=== PATIENT | female | born 1960 | race Caucasian/White ===

== ENCOUNTER 2024-06-23 01:25 | Inpatient (IN) | payer OTHER, SELFPAY ==
[2024-06-22 21:18] VITALS: BP 147/64
[2024-06-22 21:19] VITALS: BMI 35.6
[2024-06-22 21:20] VITALS: BP 147/64
--- NOTE | 2024-06-22 21:33 | ED.GENMED ---
History of Present Illness
General
Chief Complaint: Abdominal Symptoms
Source: patient
Exam Limitations: none
Time Seen by Provider: 06/22/24 21:21
Nursing documentation reviewed up to this point in time: agreed with
History of Present Illness
History of Present Illness:
Patient presents to ED secondary to intermittent episodes of 'shaking chills' since last night. When she went to sleep at 2 AM yesterday, patient did not have any complaints. However, she woke up shortly afterwards with aforementioned sensation.
During the course the day today, patient states that her symptoms had resolved until this evening, when her symptoms returned with 1 vomiting episode. Denies recent illness. Denies fever. Denies coughing. Denies rash. Denies headache. Denies
recent travel. Denies sick contact. Denies recent change in medications or diet.
Review of Systems
Review of Systems
Allergies reviewed?: Yes
All Other Systems: ROS reviewed and negative except as documented in HPI and ROS
Constitutional: Reports chills
Respiratory: Reports no symptoms; Denies trouble breathing
Cardiac: Reports no symptoms; Denies chest pain
ABD/GI: Reports nausea and vomiting; Denies abdominal pain
: Denies no symptoms
Musculoskeletal: Reports no symptoms
Skin: Reports no symptoms
Neurological: Reports no symptoms
Phy Exam
Physical Exam
Physical Exam:
Physical Exam
General: mild distress, not acutely ill. afebrile.
Head: nc/at. eomi
Neck: supple. no meningeal signs.
Heart: s1/s2 regular rate and rhythm, no murmur. equal radial pulses.
Lungs: no acute respiratory distress. clear bilaterally
Abdomen: normal bowel sounds. not tender.
Neuro: alert and oriented. no focal neurological deficits
Skin: no rash
Psychiatric: well kept. interactive and cooperative
Extremities: no edema. no calf tenderness.
Course
Orders/Labs/Results
Orders:
Orders
06/22/24 21:31
Rectal Temp- Treatment ONCE
06/22/24 21:32
0.9% Sodium Chloride 500 ml [Nss] 500 ml IV BOLUS
Ondansetron Injectable [Zofran] 4 mg IV NOW STA
06/22/24 21:33
Electrocardiogram (*1) Urgent
Reason for Study: Bradycardia / Tachycardia
EKG- Treatment ONCE
06/22/24 21:35
COVID-19 Antigen Urgent
Source: Nasal Swab
Complete Blood Count/With Diff Urgent
Comprehensive Metabolic Panel Urgent
Lipase Urgent
Comment: ADD ON
Magnesium Urgent
Troponin I Urgent
06/22/24 21:43
Acetaminophen [Tylenol] 1,000 mg PO NOW STA
06/22/24 22:13
Urinalysis Reflex To Culture Urgent
Date Specimen was Collected: 06/22/24
Time Specimen was Collected: 22:12
Urine Microscopic Reflex Cult Urgent
06/22/24 22:24
US Abdomen Complete/Upper Urgent
Comment:
Reason For Exam: abnormal LFTs w fever
06/22/24 22:25
Add On- LAB Urgent
Tests Added?: lipase
06/22/24 23:30
Piperacillin/Tazo 3.375 Gram [Zosyn] 3.375 gram in 50 ml IV NOW
06/22/24 23:42
Lactic Acid Q4H
Comment: CANCEL 2nd LACTIC ACID IF 1st LACTIC ACID IS LESS THAN 2
Blood Culture Urgent
LUKE Source: Blood/Venous
Specimen Description:
06/23/24 01:08
Admit/Transfer Patient As Directed
Co-Sign Provider:
Level of Care: Inpatient admission
Assign to:: Medical/Surgical
Physician / Group: Kyle
Diagnosis: Hepatitis / Cholangitis
Reason for Hospitalization: Hepatitis / Cholangitis
Expected length of stay greater than two midnights?: Yes
ELOS- Estimated Length of Stay in days: 3
I certify the patient meets the requirements for IP care: Yes
PRN Pain Medication Management As Directed
May give lesser potent ordered pain med per pt: Yes
preference::
Protocol:: Medication orders for pain may be administered in a
manner that supports deferring to patient preference
when the pt is:
- Requesting an ordered lesser potent pain medication.
Least to most potent pain medications are defined
as: acetaminophen < NSAID < tramadol < opioids
(morphine, oxycodone, hydromorphone).
- Requesting a lesser dose of the same medication IF
ORDERED.
- Requesting a less intrusive route of administration
if both routes are prescribed by the provider (PO <
IV).
06/23/24 01:09
Code Status As Directed
Resuscitation Status: Full Code
06/23/24 02:16
Acetaminophen [Tylenol] 650 mg PO Q4HPRN PRN
Lactated Ringers [Lr] 1,000 ml IV 100 mls/hr
Piperacillin/Tazo 3.375 Gram [Zosyn] 3.375 gram in 50 ml IV Q6H
06/23/24 02:16
Consult Notification Routine
Specialty to Notify: Gastroenterology
Date consulting provider notified: 06/23/24
Time consulting provider notified: 07:47
Notified:: Provider
GASTROINTESTINAL CONSULT Routine
Consulting Provider: Kenyatta Obando
Was physician already notified: No
Reason for consult: Hepatitis / Cholangitis
Activity As Directed
Activity Level: Ambulate
I/O [Intake/ Output] As Directed
Frequency: Per unit guidelines
Vital Signs As Directed
Frequency: Per unit guidelines
Oxygen Therapy [O2 Therapy] [RESP] Routine
Titrate/Wean O2 to maintain O2 sat greater than (%): 94
DX Deep Vein Thrombosis Video Routine
06/23/24 Breakfast
Clear Liquid
At Your Request: Full Participation
06/23/24 06:08
Complete Blood Count/No Diff IN AM
Hepatitis A IgM Antibody Urgent
Hepatitis B Core Ab, IgM Urgent
Hepatitis B Surface Antibody Urgent
Hepatitis B Surface Antigen Urgent
Hepatitis C Antibody Urgent
Lactic Acid Q4H
Comment: CANCEL 2nd LACTIC ACID IF 1st LACTIC ACID IS LESS THAN 2
06/23/24 18:00
Enoxaparin Sodium [Lovenox] 40 mg SC QPM
Abnormal Lab Results
06/22/24 06/22/24 06/22/24
21:35 22:13 23:42
WBC 4.6 L 10^3/uL
(4.8-10.8)
MCV 80.3 L fL
(81.0-99.0)
MCH 26.8 L pg
(27.0-31.0)
RDW 14.6 H %
(11.5-14.5)
MPV 11.2 H fL
(7.4-10.4)
Absolute Lymphs (auto) 0.4 L 10^3/uL
(1.2-3.4)
Absolute Monos (auto) 0.0 L 10^3/uL
(0.1-0.6)
Neutrophils % 88.9 H %
(42.2-75.2)
Lymphocytes % 9.3 L %
(20.5-51.1)
Monocytes % 0.4 L %
(1.7-9.3)
Glucose 111 H mg/dl
(70-99)
Lactic Acid 2.5 H mmol/L
(0.7-2.0)
Total Bilirubin 4.4 H mg/dl
(0.2-1.3)
AST 1982 H* U/L
(14-36)
ALT 2577 H* U/L
(0-35)
Alkaline Phosphatase 406 H U/L
(38-126)
Ur Occult Blood Reflex 2+ A
(Negative)
Urine Bilirubin 2+ A
(Negative)
Urine Urobilinogen 2+ A
(Neg - 1+)
Leukocyte Esterase Rfl Trace A
(Negative)
06/22/24 21:35
06/22/24 21:35
Vital Signs
Initial and Last Documented VS:
Initial Vital Signs
BP
147/64
06/22/24 21:18
Last Documented Vital Signs
Temp Pulse Resp BP Pulse Ox
98.1 F 81 16 109/63 97
06/23/24 07:49 06/23/24 07:49 06/23/24 07:49 06/23/24 07:49 06/23/24 07:49
MDM/Problems Addressed
MDM/Problems Addressed:
Patient presents to ED with fever with abnormal LFTs. Abdominal ultrasound report reviewed - no acute findings noted. In light of patient's presenting symptoms, difficult to exclude potential cholangitis. As such, patient will be given empiric
antibiotic coverage with Zosyn and will be admitted for further evaluation and treatment.
*Critical Care Note
Total Time (30-74mins, 75-104mins- exclusive of procedures): Not Applicable
ED Attending Note
-
Portions of this chart may have been created with voice recognition software.� Occasional wrong word or��sound alike� substitutions may have occurred due to the inherent limitations of voice recognition software.
Discharge Plan
Departure
Patient Disposition: Admit
Date of Disposition: 06/22/24
Time of Disposition: 23:30
Admit to: Telemetry
Presentation/result/management discussed w/ accepting MD/DO: Hospitalist
Discharge Problem:
Fever, Abnormal LFTs
Interventions
Interventions:
*Risk Screen - Suicide Last Done: 06/22/24 21:26
*General Assessment Last Done: 06/22/24 21:26
*Neglect/Abuse Screening Last Done: 06/22/24 21:26
ED- Fall Risk Assessment Last Done: 06/22/24 21:28
*ED COVID-19 Vaccine History Last Done: 06/22/24 21:26
*Nursing Disposition Last Done: 06/23/24 02:09
UD-Wnhscl-Plrafovzyy Assessment Last Done: 06/22/24 23:20
Discharge Date and Time
Discharge Date/Time: 06/23/24 02:10
[2024-06-22 21:40] LABS: % Basophils 0.4 % (0-2); % Eosinophils 0.6 % (0-6); % Immature Granulocytes 0.4 % (0-0.5); % Lymphocytes 9.3 % (20.5-51.1); % Monocytes 0.4 % (1.7-9.3); % Neutrophils 88.9 % (42.2-75.2); Absolute Lymphocytes 0.4 10^3/uL (1.2-3.4); Absolute Neutrophils 4.1 10^3/uL (1.4-6.5); Hematocrit 39.2 % (37.0-47.0); Hemoglobin 13.1 g/dL (12.0-16.0); Mean Corp Hgb Conc. 33.4 g/dL (33.0-37.0); Mean Corpuscular Hgb 26.8 pg (27.0-31.0); Mean Corpuscular Volume 80.3 fL (81.0-99.0); Mean Platelet Volume 11.2 fL (7.4-10.4); Nucleated Red Blood Cells % 0 %; Platelet Count 214 10^3/uL (130-400); Red Blood Cell Count 4.88 10^6/uL (4.20-5.40); Red Cell Dist. Width 14.6 % (11.5-14.5); White Blood Cell Count 4.6 10^3/uL (4.8-10.8)
[2024-06-22] MEDS: NSS 500 IV (21:40)
[2024-06-22] MEDS: ZOFRAN 4 MG IV (21:40)
[2024-06-22 21:57] LABS: Albumin 4.3 g/dl (3.5-5.0); Alkaline Phosphatase 406 U/L (38-126); Blood Urea Nitrogen 11 mg/dl (7-17); Calcium 9.2 mg/dl (8.4-10.2); Carbon Dioxide 24 mmol/L (22-30); Chloride 104 mmol/L (98-107); Estimated Creatinine Clearance 94 ml/min; Glucose 111 mg/dl (70-99); Magnesium 1.8 mg/dl (1.6-2.3); Potassium 3.9 mmol/L (3.5-5.1); Sodium 137 mmol/L (135-145); Total Bilirubin 4.4 mg/dl (0.2-1.3); Total Protein 6.9 g/dl (6.3-8.2); eGFR > 60.00
[2024-06-22 22:00] VITALS: BP 156/65
[2024-06-22 22:08] LABS: COVID-19 Antigen Negative (Negative)
[2024-06-22] MEDS: TYLENOL 1000 MG PO (22:10)
[2024-06-22 22:11] LABS: Troponin I < 0.012 ng/ml
[2024-06-22 22:24] LABS: Urine Albumin Negative (Neg - Trace); Urine Bilirubin 2+ (Negative); Urine Character Clear (Clear); Urine Color Yellow; Urine Glucose Negative (Negative); Urine Ketone Negative (Negative); Urine Leukocyte Trace (Negative); Urine Nitrite Negative (Negative); Urine Occult Blood 2+ (Negative); Urine Specific Gravity 1.015 (<1.030); Urine Urobilinogen 2+ (Neg - 1+)
[2024-06-22 22:28] LABS: ALT (SGPT) 2577 U/L (0-35); AST (SGOT) 1982 U/L (14-36)
[2024-06-22 22:41] LABS: Lipase 112 U/L (23-300)
[2024-06-22 22:52] LABS: Urine Red Blood Cell 0-2 /HPF (0-2)
[2024-06-22 23:10] VITALS: BP 121/109
[2024-06-22 23:22] VITALS: BP 122/64
[2024-06-22] MEDS: ZOSYN 50 IV (23:49)
[2024-06-23] VITALS: BP 121/60
[2024-06-23 00:10] LABS: Lactic Acid 2.5 mmol/L (0.7-2.0)
[2024-06-23 01:00] VITALS: BP 123/60
--- NOTE | 2024-06-23 01:12 | HPS.HSE ---
Family Physician
-
Family Physician: Wilder Farfan
Chief Complaint
-
Abd Pain, Chills
History of Present Illness
Patient is a 64y F with PMH significant for dyslipidemia and obesity who presents to ED complaining of abdominal pain, N/V and chills. Patient states that she woke this AM with some abdominal discomfort across her lower abdomen. This seemed to
improve throughout the day. Last in the evening, she began to feel nauseated. She then developed shaking chills, sweats and aching pain all over. Patient had N/V x 1 at home and a second episode here in the ED. She denies any diarrhea. She
denies any urinary complaints.
Patient denies any prior history of similar symptoms.
She denies any recent new / unusual food exposures. She does eat deli meats - but is not sure which type / brand.
Patient traveled to [place] in May where she was swimming in fresh water lakes. No other recent travel.
No known sick contacts.
Patient is s/p prior cholecystectomy.
She had labs done for routine physical in March and these were unremarkable including completely normal LFTs at that time.
Medical History
Past Medical History
Past Medical History: Reports Other
Additional Past Medical History:
Dyslipidemia
Breast Cancer s/p Lumpectomy and XRT
Obesity
Vitamin D Deficiency
Past Surgical History: Reports Other
Additional Past Surgical History:
Cholecystectomy
Left Lumpectomy
Social History
Tobacco: Non-smoker
Alcohol: None
Drug: None
Family History
Family History: Other (Mother: Premature CAD MGM: Breast Cancer)
Allergies / Home Medications
Allergies reflects when Allergies were last updated in [facility].
Home Medications with original date entered in [facility]
Allergy/Medication List:
Allergies
Allergy/AdvReac Type Severity Reaction Status Date / Time
No Known Allergies Allergy Unverified 06/22/24 21:21
Home Medications
atorvastatin 10 mg tablet 10 mg PO DAILY 06/22/24
ergocalciferol (vitamin D2) 1,250 mcg (50,000 unit) capsule 1,250 mcg PO QWEEK 06/22/24
Review of Systems
-
History Source: Patient
A 12 point ROS was completed and negative except as noted: Yes
Constitutional: Reports Fever, Fatigue and Chills
EENT: Denies Sore Throat
Respiratory: Denies Cough or Trouble Breathing
Cardiac: Denies Chest Pain or Palpitations
Abdomen/GI: Reports Abdominal Pain, Nausea and Vomiting; Denies Diarrhea, Constipated, Bloody Stools, Black Stools or Anorexia
: Denies Dysuria, Frequency or Flank Pain
Musculoskeletal: Denies Joint Pain or Edema
Neurological: Denies Dizzy or Headache
Psych: Denies Depression or Anxiety
Physical Exam
Vital Signs
Vital Signs
Temp Pulse Resp BP Pulse Ox
101.0 F H 97 17 123/60 95
06/22/24 23:30 06/23/24 01:00 06/23/24 01:00 06/23/24 01:00 06/23/24 01:00
Physical Exam
General: Other (64y F in no acute distress.)
HEENT: Moist mucous membranes, PERRLA and Other (Thick neck.)
Respiratory: Clear; No Wheezes, Rales or Rhonchi
Cardiac: S1/S2 and Regular Rhythm; No Murmur
GI: Soft, Non Tender, Non Distended, Normal Bowel Sounds and Other (Obese. )
Musculoskeletal: No Clubbing, No Cyanosis and No Edema
Neuro: AO x 3
Laboratory Results
-
06/22/24 21:35
06/22/24 21:35
Laboratory Results
Lactic Acid 2.5 mmol/L (0.7-2.0) H 06/22/24 23:42
Total Bilirubin 4.4 mg/dl (0.2-1.3) H 06/22/24 21:35
AST 1982 U/L (14-36) H* 06/22/24 21:35
ALT 2577 U/L (0-35) H* 06/22/24 21:35
Alkaline Phosphatase 406 U/L (38-126) H 06/22/24 21:35
Troponin I < 0.012 ng/ml 06/22/24 21:35
Lipase 112 U/L (23-300) 06/22/24 21:35
Impression/Plan
-
A/P: Patient is a 64y F with PMH significant for obesity and dyslipidemia who presents to ED complaining of abd pain, N/V and chills.
Acute Hepatitis v Cholangitis
Sepsis secondary to the above
- Admit for further evaluation and treatment.
- Patient presents with fever and tachycardia and abnormal LFTs c/w hepatitis or cholangitis.
- Some abdominal pain but no tenderness on exam.
- US essentially unremarkable post-cholecystectomy exam.
- Continue IV Zosyn for now.
- Check hepatitis panel.
- GI evaluation for additional recommendations.
- Supportive care including IVFs, antiemetics, etc.
- Hold statin for now - though doubt this is related.
Dyslipidemia
Obesity due to excess calories
- Affects all aspects of care.
- Encourage healthy diet and increased exercise with goal of weight loss.
DVT Prophylaxis: Lovenox
Code Status: Full
[2024-06-23 02:15] VITALS: BP 103/63; BMI 35.2
[2024-06-23] MEDS: ZOFRAN 4 MG IV (03:13)
[2024-06-23] MEDS: LR 1000 IV ×2 (03:14→18:33)
[2024-06-23] MEDS: ZOSYN 50 IV ×4 (03:14→20:30)
[2024-06-23 06:00] VITALS: BMI 35.2
[2024-06-23 06:39] LABS: Hematocrit 35.4 % (37.0-47.0); Mean Corp Hgb Conc. 33.9 g/dL (33.0-37.0); Mean Corpuscular Hgb 27.6 pg (27.0-31.0); Mean Corpuscular Volume 81.6 fL (81.0-99.0); Platelet Count 155 10^3/uL (130-400); Red Blood Cell Count 4.34 10^6/uL (4.20-5.40); Red Cell Dist. Width 14.6 % (11.5-14.5)
[2024-06-23 06:40] LABS: Lactic Acid 1.9 mmol/L (0.7-2.0)
[2024-06-23 06:42] LABS: Albumin 3.3 g/dl (3.5-5.0); Alkaline Phosphatase 345 U/L (38-126); Blood Urea Nitrogen 13 mg/dl (7-17); Calcium 8.6 mg/dl (8.4-10.2); Carbon Dioxide 21 mmol/L (22-30); Chloride 107 mmol/L (98-107); Direct Bilirubin 3.6 mg/dl (0.0-0.4); Estimated Creatinine Clearance 65 ml/min; Glucose 122 mg/dl (70-99); Potassium 3.5 mmol/L (3.5-5.1); Sodium 137 mmol/L (135-145); Total Bilirubin 5.7 mg/dl (0.2-1.3); Total Protein 5.8 g/dl (6.3-8.2); eGFR > 60.00
[2024-06-23 07:02] LABS: ALT (SGPT) 1635 U/L (0-35); AST (SGOT) 1203 U/L (14-36)
[2024-06-23 07:49] VITALS: BP 109/63
--- NOTE | 2024-06-23 07:52 | CON.GI ---
Addendum entered and electronically signed by Kenyatta Obando MD 06/23/24 13:06:
I saw and examined the patient.
The BLIND HOOKER's note was reviewed and I agree with the note.
Comment: This is a 64-year-old female who presented to the ER last night with acute onset of abdominal pain with fever, chills, nausea, vomiting and found to have significantly elevated LFTs on presentation with leukocytosis and has been started on
empiric antibiotics. She denies any diarrhea she is usually constipated, no rectal bleeding or melena. she is feeling improved today and her LFTs are trending down. ultrasound did not reveal any ductal dilatation status post cholecystectomy. She
says her cholecystectomy was about 14 years ago and was complicated and apparently also had biliary reconstruction at that time. She also denied eating out anywhere recently or exposure to sick contacts also denies eating any raw seafood
Assessment and plan acute onset of abdominal pain with fever. chills. nausea. vomiting. abnormal LFTs and leukocytosis concerning for possible transient cholangitis but reviewed MRI with MRCP no evidence of CBD stone seen it is possible that she may
have passed a stone. r/o viral syndrome. Acute viral hepatitis serologies are pending, COVID negative, monoscreen negative, acetaminophen level is also undetectable, she denies alcohol use and has not been using any NSAIDs recently. Continue
Zosyn for now, await blood cultures, continue IV fluids, tolerating clear liquids. Hold statin for now.
06/23/24 MRI with MRCP
IMPRESSION:
Moderate diffuse hepatic steatosis.
Unremarkable biliary tree without evidence for dilatation, stricture or filling defects.
Probable sequelae of chronic colitis.
Original Note:
Consultation
-
Date/Time Consultation Requested: 06/23/24 @ 02:16
Date/Time Consultation Performed: 06/23/24 @ 08:00
Requesting Provider: Dr. Wright
Performing Provider: ROSMERY Mcneill; Dr. Kenyatta Obando
Reason for Consultation: Hepatitis / Cholangitis
Medical History
Chief Complaint / HPI
Chief Complaint: abdominal pain, chills
History of Present Illness:
The pt is a 64 yo female with a PMH significant for HLD, obesity, breast cancer s/p lumpectomy and XRT 2013, Vitamin D deficiency, cholecystectomy 2006, who presented to the ER with complaints of abdominal pain and chills. We are being asked to
evaluate for abnormal LFT's and concern for cholangitis. The patient reports that yesterday morning she felt unwell. She notes generalized discomfort in her abdomen feeling as though 'her insides were on fire.' She also reports feeling extremely
fatigued with loss of appetite. She notes that she did take some Advil which did make her feel somewhat better. Then again around 7 PM she again felt a significant discomfort in her abdomen and generalized weakness. She notes she then began
shaking and developed chills. She notes she had a fever of 100 at home but given her worsening symptoms she presents to the ER. She denies any yellowing of the skin or eyes. She does admit to nausea and vomiting with bilious emesis. She notes
that she was constipated last night but did have a bowel movement this morning. She generally does have a yellow appearance to her stool thought to be secondary to bile from her previous cholecystectomy. She notes that she does have some lower
abdominal pain that comes and goes, although is improved at this point. She otherwise denies any chest pain, shortness of breath, lightheadedness, dizziness, unintentional weight loss, early satiety, dysphagia, or odynophagia. She notes that she
did see her PCP in March and her liver function test were normal at that time. She denies any history of liver disease, hepatitis, or fatty liver disease. She did have her gallbladder out in 2006 and notes that her liver enzymes were elevated at
that time. She denies any obstruction of her bile ducts during the time of her gallbladder surgery. She denies any new medications, recent antibiotics, sick contacts, recent travel, or alcohol use. She denies any IV drug use in the past. She
does use Tylenol PM only as needed for chronic joint pain. She denies any family history of colon cancer or other GI cancers or disorders. Her last colonoscopy was about 7 years ago in which she had precancerous polyps removed. She has never had
an EGD. She notes a history of breast cancer which required a left lumpectomy and radiation therapy in 2013. She goes for an annual mammogram which she had 3 weeks ago which was normal. Routine labs on admission showed TB 4.4, AST 1982, ALT 2577,
Alk phos 406, trop neg x1, lipase 112, lactic acid 2.5. Abdominal US was done showing no significant biliary ductal dilation, but there is punctate and linear increased echogenicity associated with intrahepatic portal triads report. Also fatty
alteration of the liver was seen. BC x1 sent and are pending. She was placed on IV Zosyn, lactated Ringer's at 100 mL/h, and admitted for further evaluation by GI. He did have fevers of 101.9 on admission, with resolution of fever since then.
Currently she reports her pain has improved.
Past Medical History
Past Medical History: Cancer (breast CA status post lumpectomy and radiation), Hypercholesterolemia and Other (obesity )
Past Surgical History: Cholecystectomy and Other (breast lumpectomy )
Social History
Tobacco: Non-Smoker
Alcohol: None
Drug: None
Family History
Family History: Reviewed & Not Pertinent
Allergies / Home Medications
Allergy/AdvReac Type Severity Reaction Status Date / Time
No Known Allergies Allergy Unverified 06/22/24 21:21
�Medication �Instructions �Recorded
atorvastatin 10 mg tablet 10 mg PO DAILY 06/22/24
ergocalciferol (vitamin D2) 1,250 1,250 mcg PO QWEEK 06/22/24
mcg (50,000 unit) capsule
Review of Systems
-
History Source: Patient
Constitutional: Reports Fatigue, Chills and Other (Sweats)
EENT: Reports No Symptoms
Respiratory: Reports No Symptoms
Cardiac: Reports No Symptoms
Abdomen/GI: Reports Abdominal Pain, Nausea and Vomiting
: Reports No Symptoms
Musculoskeletal: Reports No Symptoms
Skin: Reports No Symptoms
Neurological: Reports No Symptoms
Endocrine: Reports No Symptoms
Hematologic/Lymphatic: Reports No Symptoms
Vital Signs
Temp Pulse Resp BP Pulse Ox
98.1 F 81 16 109/63 97
06/23/24 07:49 06/23/24 07:49 06/23/24 07:49 06/23/24 07:49 06/23/24 07:49
Physical Exam
Exam
General: Well Developed, Well Nourished, No Apparent Distress, Comfortable and Other
HEENT: Normocephalic, Atraumatic and Other (Bilateral scleral icterus)
Respiratory: Clear
Cardiac: S1/S2 and Regular Rhythm
Breast: Deferred by me
GI: Soft, Non Tender, Normal Bowel Sounds, Distended (Mildly distended but soft) and Other (Prior cholecystectomy scar)
Rectal: Deferred by Provider
Musculoskeletal: No Edema
Skin: Warm, Dry and Other (Jaundice)
Neuro: Awake, Alert and Oriented
Psych: Calm
Results
WBC 21.0 10^3/uL (4.8-10.8) H 06/23/24 06:08
Hgb 12.0 g/dL (12.0-16.0) 06/23/24 06:08
Hct 35.4 % (37.0-47.0) L 06/23/24 06:08
MCV 81.6 fL (81.0-99.0) 06/23/24 06:08
Plt Count 155 10^3/uL (130-400) D 06/23/24 06:08
Absolute Neuts (auto) 4.1 10^3/uL (1.4-6.5) 06/22/24 21:35
Sodium 137 mmol/L (135-145) 06/23/24 06:08
Potassium 3.5 mmol/L (3.5-5.1) 06/23/24 06:08
Chloride 107 mmol/L (98-107) 06/23/24 06:08
Carbon Dioxide 21 mmol/L (22-30) L 06/23/24 06:08
BUN 13 mg/dl (7-17) 06/23/24 06:08
Creatinine 1.0 mg/dL (0.6-1.0) 06/23/24 06:08
Calcium 8.6 mg/dl (8.4-10.2) 06/23/24 06:08
Total Bilirubin 5.7 mg/dl (0.2-1.3) H 06/23/24 06:08
AST 1203 U/L (14-36) H* 06/23/24 06:08
ALT 1635 U/L (0-35) H* 06/23/24 06:08
Alkaline Phosphatase 345 U/L (38-126) H 06/23/24 06:08
Lipase 112 U/L (23-300) 06/22/24 21:35
Diagnostic Image Results:
06/22/24 US abdomen: IMPRESSION: Prior cholecystectomy. 8 mm common bile duct which may be related to prior cholecystectomy and patient age. Recommend correlation with liver function tests to exclude cholestatic etiology. Also noted is punctate and
linear increased echogenicity associated with the intrahepatic portal triads, the differential appearance of which may include pneumobilia (if there is been previous biliary-enteric manipulation such as sphincterotomy) or portal venous gas. Fatty
infiltration of the liver.
Prior GI Procedures:
EGD: none
Colonoscopy: done 7 years ago at [facility], with precancerous polyps removed.
Assessment / Plan
-
The pt is a 64 yo female with a PMH significant for HLD, obesity, breast cancer s/p lumpectomy and XRT 2013, Vitamin D deficiency, cholecystectomy 2006, who presented to the ER with complaints of abdominal pain and chills, found to have
significantly elevated LFTs with a mixed cholestatic and hepatocellular pattern and fevers concerning for possible cholangitis. Ultrasound imaging did not show any significant findings. She has had improvement in her pain and resolution of fevers.
She was placed on IV Zosyn and IV fluids. She has no history of liver disease. She had prior cholecystectomy in 2006. Reportedly with normal LFTs in March.
Problem list:
-abdominal pain, r/o cholangitis, acute hepatitis
-fevers
-abnormal LFT's, mixed cholestatic and hepatocellular pattern
-leukocytosis
-lactic acidosis
-prior CCY 2006
Other pertinent medical hx:
-hx breast cancer 2013 s/p lumpectomy and XRT
-US showing fatty liver, CBD 8mm s/p CCY
-HLD
Recommendations:
-Etiology of elevated LFT's possibly 2/2 obstructive biliary process v infectious etiology (acute hepatitis, cholangitis) v other.
---Suspected to be infectious given fevers and leukocytosis. She denies hx hepatitis, liver disease, alcohol use, sick contacts, recent travel, or new medications.
-Given increasing bilirubin and unrevealing US would obtain urgent MRI with MRCP for further evaluation.
-Antibiotics initiated with IV Zosyn, continue
-Trend LFTS
-Follow Hepatitis serologies
-Add Monospot and Tylenol level
-Would hold off on further Tylenol at this time
-Avoid hepatotoxic medications
-She will need eventual OP evaluation of fatty liver disease with Fibroscan
-Further management pending above
-
-
Thank you for consultation and allowing me to participate in the patient's care. Please call the public relations account executive GI physician during the after hours with any questions or concerns.
--- NOTE | 2024-06-23 09:17 | W.PN.HOSP.TC ---
Today's Communication/Plan
-
GI consult
Abdominal MRI
Continue antibiotics
Await cultures
Viral hepatitis panel
Assessment / Plan
Assessment / Plan
Gen-AAOx3, NAD, obese
HEENT-NC, AT, anicteric, clear oral mm
Neck-supple
CV-reg, no M, +S1/S2
Lungs-clear B/L
Abd-soft, NT, ND
Ext-no edema
Musculoskeletal-no cyanosis, clubbing
Skin-warm and dry
Neuro-grossly non-focal
Psych-calm, cooperative
Sepsis -possible biliary source versus acute hepatitis versus other. Blood cultures pending. Continue empiric IV Zosyn. Abdominal MRI pending. GI consulted. Transaminases trending down, bilirubin going up. Currently on clear liquid diet.
Abdominal ultrasound reviewed, shows prior cholecystectomy, 8 mm common bile duct. Possible pneumobilia Or portal venous gas. Fatty liver.
Viral hepatitis panel pending.
Patient states that her prior cholecystectomy procedure in [facility] was complicated and involved creation of a duct.
Hyperlipidemia -hold atorvastatin for elevated transaminases.
History of breast cancer
Vitamin D deficiency
Obesity due to excess calories
Full code
Anticipated Discharge: > 48 hours
Subjective/Interval History
-
Date of Service: June 23, 2024
Patient seen and examined. Feeling better. No complaints.
Objective Data
-
Labs:
Laboratory Results
06/22/24 06/23/24
21:35 06:08
WBC 4.6 L 21.0 H
Hgb 13.1 12.0
Hct 39.2 35.4 L
Plt Count 214 155 D
Sodium 137 137
Potassium 3.9 3.5
Chloride 104 107
Carbon Dioxide 24 21 L
BUN 11 13
Creatinine 0.7 1.0
Glucose 111 H 122 H
Calcium 9.2 8.6
Total Bilirubin 4.4 H 5.7 H
AST 1982 H* 1203 H*
ALT 2577 H* 1635 H*
Alkaline Phosphatase 406 H 345 H
Vital Signs:
Vital Signs
Temp Pulse Resp BP Pulse Ox
98.1 F 81 16 109/63 97
06/23/24 07:49 06/23/24 07:49 06/23/24 07:49 06/23/24 07:49 06/23/24 07:49
I&O
06/22/24 06/23/24 06/24/24
06:59 06:59 06:59
Intake Total 350 / 350 480 / 480
Balance 350 / 350 480 / 480
Review of Systems
-
History Source: Patient
All other systems: Reviewed and negative
[2024-06-23 10:47] LABS: Acetaminophen < 10 ug/ml (10-30)
[2024-06-23 11:52] LABS: Monotest Negative (Negative)
--- NOTE | 2024-06-23 14:40 | CM ---
Initial assessment completed with pt.
Pt is a 64yr old admitted with abnormal LFTs and Fever
At baseline, pt lives with her in a 1 story home and 2 steps to enter
Pt is independent and no DME/VN
Pt anticipates no needs at dc
PCP; Wilder Farfan
Pharm; [facility] [place]
DC home with no needs
[2024-06-23 15:40] VITALS: BP 105/52
[2024-06-23] MEDS: LOVENOX 40 MG SC (16:56)
[2024-06-23 23:00] VITALS: BP 121/56
[2024-06-24] MEDS: ZOFRAN 4 MG IV (02:15)
[2024-06-24] MEDS: ZOSYN 50 IV ×2 (02:16→08:23)
[2024-06-24] MEDS: MOTRIN 400 MG PO (02:36)
[2024-06-24] MEDS: LR 1000 IV (06:02)
[2024-06-24 07:26] VITALS: BP 103/60
[2024-06-24 07:26] LABS: % Basophils 0.3 % (0-2); % Immature Granulocytes 0.8 % (0-0.5); % Lymphocytes 7.1 % (20.5-51.1); % Monocytes 3.5 % (1.7-9.3); % Neutrophils 87.3 % (42.2-75.2); Absolute Basophils 0.1 10^3/uL (0-0.2); Absolute Eosinophils 0.2 10^3/uL (0-0.7); Absolute Immature Granulocytes 0.1 10^3/uL (0-0.05); Absolute Lymphocytes 1.3 10^3/uL (1.2-3.4); Absolute Monocytes 0.6 10^3/uL (0.1-0.6); Absolute Neutrophils 16.1 10^3/uL (1.4-6.5); Hematocrit 32.8 % (37.0-47.0); Hemoglobin 10.9 g/dL (12.0-16.0); Mean Corp Hgb Conc. 33.2 g/dL (33.0-37.0); Mean Corpuscular Hgb 26.3 pg (27.0-31.0); Mean Corpuscular Volume 79.2 fL (81.0-99.0); Mean Platelet Volume 12.2 fL (7.4-10.4); Nucleated Red Blood Cells % 0 %; Platelet Count 149 10^3/uL (130-400); Red Blood Cell Count 4.14 10^6/uL (4.20-5.40); Red Cell Dist. Width 15.3 % (11.5-14.5); White Blood Cell Count 18.4 10^3/uL (4.8-10.8)
[2024-06-24 07:59] LABS: AST (SGOT) 496 U/L (14-36); Albumin 3.2 g/dl (3.5-5.0); Alkaline Phosphatase 312 U/L (38-126); Blood Urea Nitrogen 12 mg/dl (7-17); Calcium 8.6 mg/dl (8.4-10.2); Carbon Dioxide 24 mmol/L (22-30); Chloride 105 mmol/L (98-107); Estimated Creatinine Clearance 72 ml/min; Glucose 84 mg/dl (70-99); Potassium 3.2 mmol/L (3.5-5.1); Sodium 136 mmol/L (135-145); Total Bilirubin 4.6 mg/dl (0.2-1.3); Total Protein 5.7 g/dl (6.3-8.2); eGFR > 60.00
[2024-06-24 08:15] LABS: ALT (SGPT) 1097 U/L (0-35)
--- NOTE | 2024-06-24 08:50 | W.PN.HOSP.TC ---
Today's Communication/Plan
-
Continue antibiotics
Await cultures
ID consult
Replete potassium
Check magnesium
Assessment / Plan
Assessment / Plan
Gen-AAOx3, NAD, obese
HEENT-NC, AT, anicteric, clear oral mm
Neck-supple
CV-reg, no M, +S1/S2
Lungs-clear B/L
Abd-soft, NT, ND
Ext-no edema
Musculoskeletal-no cyanosis, clubbing
Skin-warm and dry
Neuro-grossly non-focal
Psych-calm, cooperative
E. coli sepsis -source of sepsis unclear but differential diagnosis includes GI translocation from colitis versus other causes. Abdominal MRI completed, showing moderate diffuse hepatic steatosis, unremarkable biliary tree without evidence of
dilatation, stricture or filling defects. Probable sequelae of chronic colitis. She has no urinary complaints. Urinalysis unremarkable.
Abdominal ultrasound reviewed, shows prior cholecystectomy, 8 mm common bile duct. Possible pneumobilia Or portal venous gas. Fatty liver.
Blood cultures noted to be positive for E. coli bacteria, repeat cultures and sensitivity pending. Continue IV Zosyn for now. Consult ID. White blood cell count trending down, afebrile now.
Viral hepatitis panel pending.
Patient states that her prior cholecystectomy procedure in [facility] was complicated and involved biliary reconstruction.
Hypokalemia -check magnesium. Replete orally.
Hyperlipidemia -hold atorvastatin for elevated transaminases.
History of breast cancer
Vitamin D deficiency
Obesity due to excess calories
Full code
Anticipated Discharge: 24 - 48 hours
Subjective/Interval History
-
Date of Service: June 24, 2024
Patient seen and examined. Had some abdominal discomfort last night, now improved. Tolerating diet.
Objective Data
-
Labs:
Laboratory Results
06/24/24
05:22
WBC 18.4 H
Hgb 10.9 L
Hct 32.8 L
Plt Count 149
Sodium 136
Potassium 3.2 L
Chloride 105
Carbon Dioxide 24
BUN 12
Creatinine 0.9
Glucose 84
Calcium 8.6
Total Bilirubin 4.6 H
AST 496 H
ALT 1097 H*
Alkaline Phosphatase 312 H
Vital Signs:
Vital Signs
Temp Pulse Resp BP Pulse Ox
97.9 F 76 18 103/60 96
06/24/24 07:26 06/24/24 07:26 06/24/24 07:26 06/24/24 07:26 06/24/24 07:26
I&O
06/23/24 06/24/24 06/25/24
06:59 06:59 06:59
Intake Total 350 / 350 3490 / 3490 960 / 960
Balance 350 / 350 3490 / 3490 960 / 960
Review of Systems
-
History Source: Patient
All other systems: Reviewed and negative
[2024-06-24] MEDS: KCL 40 MEQ PO (08:59)
[2024-06-24 09:26] LABS: Magnesium 1.9 mg/dl (1.6-2.3)
[2024-06-24] MEDS: LR IV (10:31)
--- NOTE | 2024-06-24 10:38 | W.PN.GI.CBS2 ---
Today's Communication / Plan
-
Continue Zosyn
trend LFTS
follow repeat BC
Assessment / Plan
-
The pt is a 64 yo female with a PMH significant for HLD, obesity, breast cancer s/p lumpectomy and XRT 2013, Vitamin D deficiency, cholecystectomy 2006, who presented to the ER with complaints of abdominal pain and chills, found to have
significantly elevated LFTs with a mixed cholestatic and hepatocellular pattern and fevers concerning for possible cholangitis. Ultrasound imaging did not show any significant findings. She has had improvement in her pain and resolution of fevers.
She was placed on IV Zosyn and IV fluids. She has no history of liver disease. She had prior cholecystectomy in 2006. Reportedly with normal LFTs in March.
Problem list:
-abdominal pain, r/o cholangitis, acute hepatitis
-fevers
-abnormal LFT's, mixed cholestatic and hepatocellular pattern
-leukocytosis
-lactic acidosis
-prior CCY 2006
Other pertinent medical hx:
-hx breast cancer 2014 s/p lumpectomy and XRT
-US showing fatty liver, CBD 8mm s/p CCY
-HLD
Recommendations:
-acute onset of abdominal pain with fever, chills, nausea, vomiting, abnormal LFTs and leukocytosis concerning for possible transient cholangitis especially given the blood cultures are positive for E. coli reviewed MRI with MRCP no evidence of CBD
stone seen it is possible that she may have passed a stone. r/o viral syndrome also. Acute viral hepatitis serologies are pending, COVID negative, monoscreen negative, acetaminophen level is also undetectable, she denies alcohol use and has not
been using any NSAIDs recently. Continue Zosyn for now, ID consulted. Hold statin for now. LFTs are trending down supporting likely passed stone. Doubt colitis she has no diarrhea currently although MRI suggests possible chronic colitis. She is
tolerating diet.
Subjective
Subjective
Date of Service: June 24, 2024
complains of fatigue no abdominal pain, no diarrhea, tolerating regular diet, no nausea or vomiting
Objective
Data Reviewed
Laboratory Data:
Laboratory Results
06/24/24 05:22
06/24/24 05:22
Laboratory Results
Magnesium 1.9 mg/dl (1.6-2.3) 06/24/24 05:22
Total Bilirubin 4.6 mg/dl (0.2-1.3) H 06/24/24 05:22
AST 496 U/L (14-36) H 06/24/24 05:22
ALT 1097 U/L (0-35) H* 06/24/24 05:22
Alkaline Phosphatase 312 U/L (38-126) H 06/24/24 05:22
Lipase 112 U/L (23-300) 06/22/24 21:35
Vital Signs and I&O:
Vital Signs
Temp Pulse Resp BP Pulse Ox
97.9 F 76 18 103/60 96
06/24/24 07:26 06/24/24 07:26 06/24/24 07:26 06/24/24 07:26 06/24/24 07:26
I&O
06/23/24 06/24/24 06/25/24
06:59 06:59 06:59
Intake Total 350 / 350 3490 / 3490 960 / 960
Balance 350 / 350 3490 / 3490 960 / 960
Physical Exam
Physical Exam
Cardiology: Normal Sinus Rhythm
Pulmonary: Clear
GI: Soft, Non Distended, Non Tender and Normal Bowel Sounds
--- NOTE | 2024-06-24 14:06 | CON.ID ---
Consultation
-
Date/Time Consultation Requested: June 24, 2024 0848
Date/Time Consultation Performed: June 24, 2024 1400
Requesting Provider: Dr. Eber Delgado
Performing Provider: Dr. Jacqueline Aldana
Reason for Consultation: E, coli sepsis
Chief Complaint / Past History
Chief Complaint
Abdominal pain
History of Present Illness
64-year-old female with remote history of cholecystectomy who presented to the hospital on June 22 with fever and abdominal pain. She woke up the morning of June 22 with lower abdominal pain across described as burning sensation. Pain slightly
improved during the day. She then developed nausea and vomiting. Also had shaking chills. Her took her temperature and she was febrile and therefore she came to the ER. In the ER temperature one 103.9. Initially she was leukopenic then
white count went up to 21. LFTs elevated with total bilirubin 4.4, AST 1982, ALT 2577, alkaline phosphatase 406. Of note her LFTs in March were normal. MRI of the abdomen showed significant hepatic steatosis, normal biliary duct, mild diffuse wall
thickening throughout the visualized colon. Admission blood culture positive for E. coli. She is currently on Zosyn. Patient reports she was constipated prior to admission. Then she had very hard stool and now pieces of stool. No urinary
symptoms. She and her eat the same food and he is fine. Last travel was to [place] and she swam in [facility] early May. Last night, she had chills and sweats. Today, she is feeling better. Abd pain improved.
Past History
Additional Past Medical History:
HLD
BMI 35
Cholecystectomy with biliary reconstruction
L Breast CA s/p lumpectomy XRT
Allergy History:
No Known Allergies Allergy (Unverified 06/22/24 21:21)
Medications Reviewed: Yes
Current Antibiotics:
Zosyn
Social History
Tobacco: Non-Smoker
Alcohol: None
Drug: None
Personal:
Employment: Retired ([employer])
Family History
Family History: Not Pertinent
Review of Systems
Review of Systems
General: Fever, Chills and Change in Appetite
HEENT: Negative Sinus Problems, Headache or Pharyngitis
Cardiovascular: Negative Chest Pain or Dyspnea
Respiratory: Negative Dyspnea or Cough
Genital / Urological: Negative Dysuria or Flank Pain
Endocrine: Weakness
Skin / Hair / Nails: Negative Urticaria or Rash
Neurological: Negative Headache or Dizziness
All systems: All other systems were reviewed and were negative
Vital Signs
Temp Pulse Resp BP Pulse Ox
97.9 F 76 18 103/60 96
06/24/24 07:26 06/24/24 07:26 06/24/24 07:26 06/24/24 07:26 06/24/24 07:26
Selected Entries
06/22/24
21:34 06/22/24
23:30
Temp 101.9 F H 101.0 F H
Physical Exam
Physical Exam
Constitutional: No Acute Distress and Comfortable
Eyes: No Conjunctival Hemorrhage and Other (sclera icteric)
Cardiovascular: Regular Rate and S1/S2
Pulmonary: Clear
Gastrointestinal: Soft, Non Tender, Non Distended and Normal Bowel Sounds
Genito-Urinary: Negative CVA Tenderness
Extremities: Negative Edema
Skin: Jaundice
Neurological: AO x 3
Lab / Diagnostic Study Results
06/24/24 05:22
06/24/24 05:22
Abs Immat Gran (auto) 0.1 10^3/uL (0-0.05) H 06/24/24 05:22
Absolute Neuts (auto) 16.1 10^3/uL (1.4-6.5) H 06/24/24 05:22
Absolute Lymphs (auto) 1.3 10^3/uL (1.2-3.4) 06/24/24 05:22
Absolute Monos (auto) 0.6 10^3/uL (0.1-0.6) 06/24/24 05:22
Absolute Basos (auto) 0.1 10^3/uL (0-0.2) 06/24/24 05:22
Immature Gran % 0.8 % (0-0.5) H 06/24/24 05:22
Neutrophils % 87.3 % (42.2-75.2) H 06/24/24 05:22
Lymphocytes % 7.1 % (20.5-51.1) L 06/24/24 05:22
Monocytes % 3.5 % (1.7-9.3) 06/24/24 05:22
Eosinophils % 1.0 % (0-6) 06/24/24 05:22
Basophils % 0.3 % (0-2) 06/24/24 05:22
Lactic Acid 1.9 mmol/L (0.7-2.0) 06/23/24 06:08
Lactic Acid Cancelled 06/23/24 06:08
Ur Squamous Epith Cells 6-10 /LPF (Few) 06/22/24 22:13
Microbiology Results
Micro:
06/22/24 23:42 Blood Culture - Preliminary
Blood/Venous Escherichia coli
Gram Stain - Final
06/23/24 14:36 Blood Culture - Pending
Blood/Venous
06/23/24 MRI abd: Moderate diffuse hepatic steatosis.Unremarkable biliary tree without evidence for dilatation, stricture or filling defects. Bowel: Mild diffuse wall thickening throughout the visualized colon. No surrounding inflammatory change.
Assessment / Plan
# Ecoli bacteremia
# Sepsis; fever, leukocytosis
# Acute elevated bili, AST >1000, ALT>1000; trending down
# N/V/abdominal pain
- MRI abd: normal bile duct wo filling defect, mild diffuse wall thickening
- Suspect cholangitis, passed bile duct stone.
- Follow repeat bcx.
- Narrow Zosyn to ceftriaxone.
- Trend wbc, temps.
[2024-06-24 15:01] VITALS: BP 130/92
[2024-06-24] MEDS: ZOSYN IV (15:14)
[2024-06-24] MEDS: STERILE WATER FOR INJECTION 10 ML IV (15:46)
[2024-06-24] MEDS: ROCEPHIN 1000 MG IV (15:47)
[2024-06-24] MEDS: LOVENOX 40 MG SC (17:20)
[2024-06-24] MEDS: KCL 20 MEQ PO (21:07)
[2024-06-24 22:58] VITALS: BP 120/63
[2024-06-25 06:43] LABS: % Basophils 0.3 % (0-2); % Eosinophils 1.7 % (0-6); % Lymphocytes 12.6 % (20.5-51.1); % Monocytes 4.1 % (1.7-9.3); % Neutrophils 80.3 % (42.2-75.2); Absolute Eosinophils 0.2 10^3/uL (0-0.7); Absolute Immature Granulocytes 0.1 10^3/uL (0-0.05); Absolute Lymphocytes 1.4 10^3/uL (1.2-3.4); Absolute Monocytes 0.5 10^3/uL (0.1-0.6); Absolute Neutrophils 9.2 10^3/uL (1.4-6.5); Hematocrit 32.3 % (37.0-47.0); Hemoglobin 10.9 g/dL (12.0-16.0); Mean Corp Hgb Conc. 33.7 g/dL (33.0-37.0); Mean Corpuscular Hgb 26.8 pg (27.0-31.0); Mean Corpuscular Volume 79.6 fL (81.0-99.0); Mean Platelet Volume 11.8 fL (7.4-10.4); Nucleated Red Blood Cells % 0 %; Platelet Count 147 10^3/uL (130-400); Red Blood Cell Count 4.06 10^6/uL (4.20-5.40); Red Cell Dist. Width 15.2 % (11.5-14.5); White Blood Cell Count 11.4 10^3/uL (4.8-10.8)
[2024-06-25 07:40] LABS: AST (SGOT) 323 U/L (14-36); Albumin 3.2 g/dl (3.5-5.0); Alkaline Phosphatase 296 U/L (38-126); Blood Urea Nitrogen 11 mg/dl (7-17); Calcium 8.8 mg/dl (8.4-10.2); Carbon Dioxide 23 mmol/L (22-30); Chloride 106 mmol/L (98-107); Estimated Creatinine Clearance 93 ml/min; Glucose 88 mg/dl (70-99); Sodium 135 mmol/L (135-145); Total Bilirubin 2.1 mg/dl (0.2-1.3); Total Protein 5.7 g/dl (6.3-8.2); eGFR > 60.00
[2024-06-25 07:48] LABS: ALT (SGPT) 817 U/L (0-35)
[2024-06-25 07:59] VITALS: BP 146/86
--- NOTE | 2024-06-25 08:05 | W.PN.GI.CBS2 ---
Today's Communication / Plan
-
trend LFTS
Assessment / Plan
-
The pt is a 64 yo female with a PMH significant for HLD, obesity, breast cancer s/p lumpectomy and XRT 2013, Vitamin D deficiency, cholecystectomy 2006, who presented to the ER with complaints of abdominal pain and chills, found to have
significantly elevated LFTs with a mixed cholestatic and hepatocellular pattern and fevers concerning for possible cholangitis. Ultrasound imaging did not show any significant findings. She has had improvement in her pain and resolution of fevers.
She was placed on IV Zosyn and IV fluids. She has no history of liver disease. She had prior cholecystectomy in 2006. Reportedly with normal LFTs in March.
Problem list:
-abdominal pain, r/o cholangitis, acute hepatitis
-fevers
-abnormal LFT's, mixed cholestatic and hepatocellular pattern
-leukocytosis
-lactic acidosis
-prior CCY 2006
Other pertinent medical hx:
-hx breast cancer 2014 s/p lumpectomy and XRT
-US showing fatty liver, CBD 8mm s/p CCY
-HLD
Recommendations:
-acute onset of abdominal pain with fever, chills, nausea, vomiting, abnormal LFTs and leukocytosis concerning for possible transient cholangitis especially given the blood cultures are positive for E. coli reviewed MRI with MRCP no evidence of CBD
stone seen it is possible that she may have passed a stone. r/o viral syndrome also. Acute viral hepatitis serologies are pending, COVID negative, monoscreen negative, acetaminophen level is also undetectable, she denies alcohol use and has not
been using any NSAIDs recently. Noted input from ID antibiotics were switched to ceftriaxone yesterday. repeat BC are neg. hold statin for now. LFTs are trending down supporting likely passed stone. Doubt colitis she has no diarrhea currently
although MRI suggests possible chronic colitis. She is tolerating diet.
-Duration of antibiotic per ID.
-Will sign off and will be available as needed, continue to trend LFTs and after DC will need to repeat LFTs in 1 to 2 weeks till they have normalized she can follow-up with PCP for this and follow-up with her GI at [place]
Subjective
Subjective
Date of Service: June 25, 2024
No abdominal pain, tolerating diet, no nausea or vomiting, LFTs are trending down, repeat blood cultures are negative
Objective
Data Reviewed
Laboratory Data:
Laboratory Results
06/25/24 04:52
06/25/24 04:52
Laboratory Results
Magnesium 1.9 mg/dl (1.6-2.3) 06/24/24 05:22
Total Bilirubin 2.1 mg/dl (0.2-1.3) H D 06/25/24 04:52
AST 323 U/L (14-36) H 06/25/24 04:52
ALT 817 U/L (0-35) H* 06/25/24 04:52
Alkaline Phosphatase 296 U/L (38-126) H 06/25/24 04:52
Lipase 112 U/L (23-300) 06/22/24 21:35
Vital Signs and I&O:
Vital Signs
Temp Pulse Resp BP Pulse Ox
98.2 F 80 17 146/86 97
06/25/24 07:59 06/25/24 07:59 06/25/24 07:59 06/25/24 07:59 06/25/24 07:59
I&O
06/24/24 06/25/24 06/26/24
06:59 06:59 06:59
Intake Total 3490 / 3490 1530 / 1530 480 / 480
Balance 3490 / 3490 1530 / 1530 480 / 480
Physical Exam
Physical Exam
Cardiology: Normal Sinus Rhythm
Pulmonary: Clear
GI: Soft, Non Distended, Non Tender and Normal Bowel Sounds
[2024-06-25] MEDS: KCL 20 MEQ PO (08:12)
--- NOTE | 2024-06-25 09:41 | W.PN.HOSP.TC ---
Today's Communication/Plan
-
Discharged today
Assessment / Plan
Assessment / Plan
E. coli sepsis -source of sepsis unclear but differential diagnosis includes GI translocation from colitis versus other causes. Abdominal MRI completed, showing moderate diffuse hepatic steatosis, unremarkable biliary tree without evidence of
dilatation, stricture or filling defects. Probable sequelae of chronic colitis. She has no urinary complaints. Urinalysis unremarkable.
Abdominal ultrasound reviewed, shows prior cholecystectomy, 8 mm common bile duct. Possible pneumobilia Or portal venous gas. Fatty liver.
Blood cultures noted to be positive for E. coli bacteria, repeat cultures neg.
Patient states that her prior cholecystectomy procedure in [facility] was complicated and involved biliary reconstruction.
Appreciate ID input, cleared for discharge on cefuroxime 500 mg twice a day for 7 more days through 07/02/24
Appreciate GI input, suspect passed stone
Stable for discharge, follow-up with PCP in 1 week, GI in 3-4 weeks
Hypokalemia -repleted and resolved
Hyperlipidemia -hold atorvastatin for elevated transaminases.
History of breast cancer
Vitamin D deficiency
Obesity due to excess calories
Full code
Physical Exam
General: Obese, no acute distress
HEENT: Normocephalic, Atraumatic, EOMI, MMM
Respiratory: Clear to Auscultation bilaterally
Cardiac: Normal S1/S2, Regular Rate and Rhythm
GI: Soft, Nontender, Nondistended, Normal Bowel Sounds
Extremities: No Clubbing, Cyanosis, or Edema
Neuro: Nonfocal/Grossly Intact
Psych: Calm, Cooperative
Derm: No Visible lesions
Anticipated Discharge: Today
Subjective/Interval History
-
Date of Service: June 25, 2024
Patient denies abdominal pain, chest pain, shortness of breath. No nausea, no vomiting. No constipation, no diarrhea.
Objective Data
-
Labs:
Laboratory Results
06/25/24
04:52
WBC 11.4 H
Hgb 10.9 L
Hct 32.3 L
Plt Count 147
Sodium 135
Potassium 4.0
Chloride 106
Carbon Dioxide 23
BUN 11
Creatinine 0.7
Glucose 88
Calcium 8.8
Total Bilirubin 2.1 H D
AST 323 H
ALT 817 H*
Alkaline Phosphatase 296 H
Vital Signs:
Vital Signs
Temp Pulse Resp BP Pulse Ox
98.2 F 80 17 146/86 97
06/25/24 07:59 06/25/24 07:59 06/25/24 07:59 06/25/24 07:59 06/25/24 07:59
I&O
06/24/24 06/25/24 06/26/24
06:59 06:59 06:59
Intake Total 3490 / 3490 1530 / 1530 480 / 480
Balance 3490 / 3490 1530 / 1530 480 / 480
--- NOTE | 2024-06-25 11:10 | CM ---
ID involved maintained on IV antibiotics.
Ambulating ad reagan.
Declined need for VN at [facility].
PLAN Home no anticipated needs.
--- NOTE | 2024-06-25 11:48 | W.PN.ID1 ---
Date of Service
Date of Service: June 25, 2024
Today's Communication
Can transition ceftriaxone to cefuroxime 500mg po bid through 07/02/24.
From ID standpoint, can dc home.
Assessment / Plan
# Ecoli bacteremia
# Sepsis; fever, leukocytosis resolving
# Acute elevated bili, AST >1000, ALT>1000; trending down
# N/V/abdominal pain
- MRI abd: normal bile duct wo filling defect, mild diffuse wall thickening
- Suspect cholangitis, passed bile duct stone.
- repeat bcx neg to date.
- Can transition ceftriaxone to cefuroxime 500mg po bid through 07/02/24.
Chief Complaint
-: Bacteremia
Subjective / Review of Systems
Feels much improved.
Vital Signs / Physical Exam
Vital Signs
Vital Signs
Temp Pulse Resp BP Pulse Ox
98.2 F 80 17 146/86 97
06/25/24 07:59 06/25/24 07:59 06/25/24 07:59 06/25/24 07:59 06/25/24 07:59
Physical Exam
Constitutional: No Acute Distress and Comfortable
Pulmonary: Clear
Gastrointestinal: Non Tender, Non Distended and Normal Bowel Sounds
Objective Data
Lab Data
Lab Results
06/25/24 04:52
06/25/24 04:52
Estimated Creat Clear 93 ml/min 06/25/24 04:52
Lactic Acid 1.9 mmol/L (0.7-2.0) 06/23/24 06:08
Lactic Acid Cancelled 06/23/24 06:08
Total Bilirubin 2.1 mg/dl (0.2-1.3) H D 06/25/24 04:52
AST 323 U/L (14-36) H 06/25/24 04:52
ALT 817 U/L (0-35) H* 06/25/24 04:52
Alkaline Phosphatase 296 U/L (38-126) H 06/25/24 04:52
Most recent labs reviewed.
Micro Results:
06/22/24 23:42 Blood Culture - Final
Blood/Venous Escherichia coli
Gram Stain - Final
06/23/24 14:36 Blood Culture - Preliminary
Blood/Venous No Growth in 24 hours- Final report to follow
06/23/24 MRI abd: Moderate diffuse hepatic steatosis.Unremarkable biliary tree without evidence for dilatation, stricture or filling defects. Bowel: Mild diffuse wall thickening throughout the visualized colon. No surrounding inflammatory change.
--- NOTE | 2024-06-25 13:33 | W.DCSUMMARY ---
Discharge Summary
Discharge Data
Date of Admission: 06/23/24
Date of Discharge: 06/25/24
-
Pending Results: No
Hospital Course
Discharge diagnoses:
Bacteremia
Sepsis
Ascending cholangitis
Suspected passed choledocholithiasis
Transaminitis
Hyperlipidemia
Morbid obesity due to excess calories
Abd MRI:
Moderate diffuse hepatic steatosis.
Unremarkable biliary tree without evidence for dilatation, stricture or filling defects.
Probable sequelae of chronic colitis.
Consults: GI, ID
Hospital Course:
64-year-old female with a past medical history of hyperlipidemia, breast cancer status postlumpectomy and radiation, obesity, and cholecystectomy with biliary reconstruction presented with fever and abdominal pain. She was found to have
transaminitis. Patient was treated with Zosyn.
Patient was seen in conjunction with GI. Abdominal MRI shows hepatic steatosis, no evidence of choledocholithiasis. GI suspects ascending cholangitis with probable passed stone.
Patient was seen in conjunction with ID. Blood cultures grew out E. coli, pansensitive. She was transitioned from Zosyn to Rocephin. Patient's fever resolved, her LFTs trended down. Her abdominal pain resolved, she tolerated a diet. She is
medically stable and cleared by GI and ID for discharge. ID recommends discharge on cefuroxime 500 mg twice a day through 07/02/2024. She needs to follow-up with her primary care doctor in 1 week, and have repeat LFTs at that time. She has been
instructed to hold her atorvastatin until her repeat LFTs are done. She has also been instructed to follow-up with GI in the office in 3-4 weeks.
Disposition: Home self-care
Discharge planning: Required 37 minutes
Discharge Plan
-
Patient Disposition: Home (Routine Discharge)
Discharge Diagnosis/Procedures: E. coli bacteremia, sepsis, transient cholangitis, suspected passed stone, fatty liver
Condition: Good
Diet: Low Fat and Low Cholesterol
Activity: As tolerated
Driving Restrictions: As prior to admission
Blood Work: Repeat liver function test with your primary care doctor in 1 week
Activity Restrictions/Additional Instructions:
Hold your atorvastatin until you have repeat liver function tests with your primary care doctor in 1 week.
Please follow-up with your primary care doctor in 1 week, and a GI doctor in 3-4 weeks.
Referrals:
Kenyatta Obando MD [Active] - in three to four weeks
Wilder Farfan MD [Family Provider] - in one week
Prescriptions:
New
cefuroxime axetil 500 mg tablet
500 mg PO BID 7 Days Qty: 14 0RF
Continued
ergocalciferol (vitamin D2) 1,250 mcg (50,000 unit) Capsule
1,250 mcg PO QWEEK
Held
atorvastatin 10 mg Tablet
10 mg PO DAILY
Hold Instructions: Resume on 07/09/24.
Discharge Orders:
Discharge Patient (As Directed); Ordered 06/25/24
Ordered By: Sandro Millard
Discharge Date and Time
Discharge Date/Time: 06/25/24 14:43
Print Language: DJIBOUTIAN
[2024-06-25] MEDS: ROCEPHIN 1000 MG IV (14:14)
[2024-06-25] MEDS: STERILE WATER FOR INJECTION 10 ML IV (14:14)
[2024-06-25 19:13] LABS: Hepatitis B Surface Antigen Negative (Negative)
[2024-06-25 19:30] LABS: Hepatitis B Surface Antibody Negative; Hepatitis C Antibody Negative (Negative)
[2024-06-26 14:19] LABS: Hepatitis B Core Ab, IgM Negative (Negative)
== END 2024-06-25 14:43 | disposition home or self-care (01) | DRG 872 ==
LOC: 3 WEST ACU 01:25
PROVIDERS: Hospitalist; ADMITTING PHYSICIAN Hospitalist; ATTENDING PHYSICIAN Family Medicine; CONSULT PHYSICIAN Internal Medicine Gastroenterology; CONSULT PHYSICIAN Internal Medicine Infectious Disease; EMERGENCY PHYSICIAN Emergency Medicine; FAMILY PHYSICIAN Internal Medicine
DX: A41.51 Sepsis due to Escherichia coli [E. coli] (principal); B17.9 Acute viral hepatitis, unspecified; K83.09 Other cholangitis; E66.01 Morbid (severe) obesity due to excess calories; Z68.35 Body mass index [BMI] 35.0-35.9, adult; Z11.52 Encounter for screening for COVID-19
CPT/HCPCS: 74183; 76700; 80053; 80143; 81003; 81015; 82248; 83605; 83690; 83735; 84484; 85025; 85027; 86308; 86705; 86706; 86709; 86803; 87040; 87149; 87186; 87205; 87340; 87811; 93005; 96361; 96365; 96375; 99285; A9575

== ENCOUNTER → 2024-09-28 06:26 | Day surgery (SDC) | payer OTHER, SELFPAY | LOC: GI 06:26 | PROVIDERS: ATTENDING PHYSICIAN Internal Medicine Gastroenterology; FAMILY PHYSICIAN Internal Medicine | DX: Z12.11 Encounter for screening for malignant neoplasm of colon (principal); Z86.0100 Personal history of colon polyps, unspecified; D12.4 Benign neoplasm of descending colon; K63.5 Polyp of colon | CPT/HCPCS: 45385; 88305 ==